=== PATIENT | female | born 1960 | race American Indian/Alaskan Native ===

== ENCOUNTER 2018-04-10 15:08 | Emergency (ER) | payer MEDICARE ==
[2018-04-10 15:33] VITALS: BP 134/80
[2018-04-10] MEDS ORDERED: MOTRIN PO ONE (17:35)
[2018-04-10] MEDS ORDERED: NORCO 5/325 PO ONE (17:35)
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
== END 2018-04-10 22:02 | disposition home or self-care (01) ==
LOC: ED 15:08
DX: S39.012A Strain of muscle, fascia and tendon of lower back, initial encounter (principal); S16.1XXA Strain of muscle, fascia and tendon at neck level, initial encounter; M51.37 Other intervertebral disc degeneration, lumbosacral region; M50.323 Other cervical disc degeneration at C6-C7 level; R07.89 Other chest pain; I10 Essential (primary) hypertension; Z90.49 Acquired absence of other specified parts of digestive tract; V49.49XA Driver injured in collision with other motor vehicles in traffic accident, initial encounter; Y93.89 Activity, other specified; Y92.89 Other specified places as the place of occurrence of the external cause; Y99.8 Other external cause status
CPT/HCPCS: 71046; 72040; 72070; 72100; 99283